=== PATIENT | male | born 1995 | race Caucasian/White ===

== ENCOUNTER 2016-11-14 08:57 | Emergency (ER) | payer OTHER ==
--- NOTE | 2016-11-14 09:16 | UCPHY ---
H & P Time Seen by Provider: 11/14/16 09:15 Patient Type: Established HPI/ROS: 21-year-old male presents complaining of right upper back pain intermittent for 1 month worse today. Patient states approximately 2-3 years ago area pain similar to this after car accidentally underwent physical therapy for trapezius muscle strain. He denies acute injury or trauma at this time Review of systems General no fever no chills no weakness HEENT no eye pain no eye discharge. No eye redness, no sore throat Respiratory no cough, no shortness of breath Cardiac no chest pain, no peripheral edema GI no abdominal pain, no diarrhea, no constipation, no nausea, no vomiting no flank pain, no hematuria, no dysuria Musculoskeletal positive myalgias, no joint pain Heme no easy bruising, no easy bleeding Endo no polyuria, no polydipsia Skin no rashes, no pruritus Neuro no syncope, no dizziness, no headaches Psych is no suicidal ideation, no homicidal ideation Past Medical/Surgical History: Asthma Bipolar Social History: Denies excessive alcohol or drug use Smoking Status: Never smoked Physical Exam: 21-year-old male HEENT atraumatic normocephalic, extraocular muscles intact, anicteric Oropharynx negative for erythema negative exudate, tolerating her own secretions Neck supple no meningismus Lungs clear to auscultation bilaterally Heart regular rate and rhythm without murmur rub or gallop Abdomen nondistended normoactive bowel sounds soft nontender Back no CVA tenderness, no step-offs, no spinal tenderness Right trapezius tenderness to palpation with mild swelling no erythema no crepitus Full range of motion of shoulder Extremities no cyanosis clubbing or edema Neuro alert and oriented, no focal deficits Constitutional: Initial Vital Signs Temperature (C) 36.8 C 11/14/16 09:15 Heart Rate 77 11/14/16 09:15 Respiratory Rate 16 11/14/16 09:15 Blood Pressure 132/69 H 11/14/16 09:15 O2 Sat (%) 94 11/14/16 09:15 O2 Delivery Mode Room Air Allergies/Adverse Reactions: No Known Allergies Allergy (Unverified 10/31/15 19:53) Home Medications: Medication Instructions Recorded ARIPiprazole [Abilify 10 mg (RX)] 10/31/15 Escitalopram Oxalate [Lexapro 10 10/31/15 MG] Lamictal 10/31/15 Levalbuterol 0.63 mg [Xopenex 10/31/15 0.63MG Neb (RX)] METHYLPHENIDATE HCL [Concerta 18 10/31/15 mg] Diazepam [Valium 5 MG (*)] 5 mg PO TID PRN #12 tab 11/14/16 Medical Decision Making ED Course/Re-evaluation: Patient seen and evaluated for right shoulder pain On physical exam pain is actually in the trapezius with tenderness to palpation and slight swelling consistent with muscle spasm Impression Right trapezius muscle spasm/strain Plan NSAID Muscle relaxant Follow-up PCP - Data Points Medications Given: Discontinued Medications Ibuprofen (Motrin) 800 mg PO EDNOW ONE Stop: 11/14/16 09:40 Last Admin: 11/14/16 09:47 Dose: 800 mg Departure - Departure Disposition: Home, Routine, Self-Care Clinical Impression: Strain of right trapezius muscle, Muscle spasm Condition: Good Instructions: Muscle Strain (ED), Muscle Spasm (ED) Referrals: NONE *PRIMARY CARE P,. [Primary Care Provider] - As per Instructions Prescriptions: Diazepam [Valium 5 MG (*)] 5 mg PO TID PRN #12 tab PRN Reason: Spasms - PQRS PQRS Measurement: na
[2016-11-14 09:20] VITALS: BP 132/69; PULSE 77; RESP 16; TEMP 98.2; O2SAT 94
[2016-11-14] MEDS ORDERED: IBUPROFEN 800 MG TAB PO ONE (09:39)
[2016-11-14] MEDS ORDERED: IBUPROFEN 200 MG TAB PO ONE (09:43)
== END 2016-11-14 09:47 | disposition home or self-care (01) ==
LOC: CED 08:57
DX: S46.811A Strain of other muscles, fascia and tendons at shoulder and upper arm level, right arm, initial encounter (principal); M62.830 Muscle spasm of back; X58.XXXA Exposure to other specified factors, initial encounter
CPT/HCPCS: 99214-PO; G0463-PO

== ENCOUNTER → 2018-07-04 | Outpatient (CLI) | payer OTHER ==
--- NOTE | 2018-07-07 14:03 | CPEEG ---
DATE OF STUDY: 07/04/2018 DATE OF INTERPRETATION: 07/07. INTERPRETATION: Normal EEG during wakefulness and drowsiness. There were no potentially epileptogen ic abnormalities present during the recording. REPORT: This EEG contains 9-10 Hz alpha activity to the posterior head regions. There was no abnorm al activation at rest, during hyperventilation, or photic stimulation. With hyperventilation, the pa osvaldo had a normal hyperventilation buildup response. The patient intermittently became drowsy durin g the study. There was no abnormal activation during drowsiness or during times of arousal. /[id number]/MODL
== END ==
LOC: FCPNEURO 14:09
PROVIDERS: ATTEND Psychiatry & Neurology Neurology
DX: R55 Syncope and collapse (principal)